=== PATIENT | female | born 1945 | race Caucasian/White ===

== ENCOUNTER → 2016-04-24 | Outpatient (REF) | payer MEDICARE ==
[~2016-04-24] MED LIST: CHLO25TA PO; MOBI7.5T10 PO; OMEP40CA2 PO; POTA10CA32 PO; ROPI2TAB PO; SIMV20TA2 PO; TYLE500T78 PO
== END ==
LOC: M LAB REF 11:40
PROVIDERS: ATTEND Internal Medicine Endocrinology, Diabetes & Metabolism
DX: E04.2 Nontoxic multinodular goiter (principal)

== ENCOUNTER 2018-09-05 11:11 | Day surgery (SDC) | payer MEDICARE ==
[~2018-09-05] VITALS: Ht 157.5 cm; Wt 68.5 kg
[~2018-09-05 11:11] MED LIST changes: +ACET-897 PO; +CELE100C PO; +CHLO125TA PO; +GABA-1171 PO; +MOBI4TAB PO; -MOBI7.5T10 PO; +RANI150T PO
--- NOTE | 2018-09-05 12:21 | ROOR ---
Patient Name: Alison Trujillo Procedure Date: 09/05/2018 11:54 AM Date of : 1945 Age: 72 Room: [facility] Gender: Female Note Status: Finalized Procedure: Colonoscopy Indications: High risk colon cancer surveillance: Personal history of colonic polyps, Family history of colon cancer Providers: Roger RAMSEY MD Referring MD: EBONI CRUZ MD Requesting Provider: Medicines: Monitored Anesthesia Care Complications: No immediate complications. Procedure: Pre-Anesthesia Assessment: - The heart rate, respiratory rate, oxygen saturations, blood pressure, adequacy of pulmonary ventilation, and response to care were monitored throughout the procedure. The Colonoscope was introduced through the anus and advanced to the terminal ileum, with identification of the appendiceal orifice and IC valve. The colonoscopy was performed without difficulty. The patient tolerated the procedure well. The quality of the bowel preparation was fair. Findings: The perianal and digital rectal examinations were normal. Three sessile polyps were found in the ascending colon. The polyps were 4 to 5 mm in size. These polyps were removed with a cold snare. Resection and retrieval were complete. (EXAM: Complete, PREP: Fair/Adequate) Multiple small and large-mouthed diverticula were found in the sigmoid colon and descending colon. Internal hemorrhoids were found during retroflexion. The hemorrhoids were moderate. The exam was otherwise without abnormality on direct and retroflexion views. Impression: - (EXAM: Complete, PREP: Fair/Adequate) - Preparation of the colon was fair. - Three 4 to 5 mm polyps in the ascending colon, removed with a cold snare. Resected and retrieved. - Moderate diverticulosis in the sigmoid colon and in the descending colon. - Internal hemorrhoids. - The examination was otherwise normal on direct and retroflexion views. Recommendation: - Repeat colonoscopy in 3 years for adenoma surveillance. - Repeat colonoscopy in 3 years because the bowel preparation was slightly suboptimal in a few areas. Roger Ramsey MD Roger RAMSEY MD 09/05/2018 12:21:46 PM Electronically signed by Roger RAMSEY MD Number of Addenda: 0 Note Initiated On: 09/05/2018 11:54 AM Estimated Blood Loss: Estimated blood loss: none.
[2018-09-05 12:47] VITALS: BP 146/67
== END 2018-09-05 12:47 | disposition home or self-care (01) ==
LOC: M OPP 11:11
PROVIDERS: ATTEND Internal Medicine Gastroenterology
DX: Z86.010 Personal history of colon polyps (principal); K64.8 Other hemorrhoids; D12.2 Benign neoplasm of ascending colon; K57.30 Diverticulosis of large intestine without perforation or abscess without bleeding; Z80.0 Family history of malignant neoplasm of digestive organs; Z83.79 Family history of other diseases of the digestive system

== ENCOUNTER → 2019-07-02 | Outpatient (REF) | payer MEDICARE ==
[~2019-07-02] MED LIST changes: -OMEP40CA2 PO; +OMEP40CA97 PO; -ROPI2TAB PO; +ROPI2TAB3 PO; -SIMV20TA2 PO; +SIMV20TA22 PO
== END ==
LOC: M LAB REF 17:28
PROVIDERS: ATTEND Dermatology
DX: L57.0 Actinic keratosis (principal); L57.8 Other skin changes due to chronic exposure to nonionizing radiation

== ENCOUNTER → 2021-09-18 | Outpatient (CLI) | payer MEDICARE ==
[~2021-09-18] MED LIST changes: +ECOT81TA5 PO; +IRON65TA2 PO; +LISI10TA24 PO; +OMEP-173 PO; +OMEP40CA4 PO; -OMEP40CA97 PO; +PRES1CHW PO; +ROSU20TA5 PO; +VITA500C24 PO; +VITMTA PO
== END ==
LOC: M LABSMTC 10:38
PROVIDERS: ATTEND Anesthesiology
DX: Z01.818 Encounter for other preprocedural examination (principal); Z11.52 Encounter for screening for COVID-19

== ENCOUNTER 2021-09-22 11:18 | Day surgery (SDC) | payer MEDICARE ==
[~2021-09-22] VITALS: Ht 157.5 cm; Wt 76.7 kg
[~2021-09-22 11:18] MED LIST changes: +NS 1,000 ML IV ONE
[2021-09-22] MEDS ORDERED: propofoL 200 MG/20 ML VIAL As Ordered ONE (12:46)
[2021-09-22 15:10] VITALS: BP 151/75
== END 2021-09-22 15:20 | disposition home or self-care (01) ==
LOC: M OPP 11:18
PROVIDERS: ATTEND Internal Medicine Gastroenterology
DX: Z12.11 Encounter for screening for malignant neoplasm of colon (principal); Z86.010 Personal history of colon polyps; Z80.0 Family history of malignant neoplasm of digestive organs; K63.5 Polyp of colon; K57.30 Diverticulosis of large intestine without perforation or abscess without bleeding; K64.8 Other hemorrhoids; Z79.02 Long term (current) use of antithrombotics/antiplatelets; Z79.1 Long term (current) use of non-steroidal anti-inflammatories (NSAID); Z79.82 Long term (current) use of aspirin; Z79.891 Long term (current) use of opiate analgesic; Z79.899 Other long term (current) drug therapy; Z88.5 Allergy status to narcotic agent; Z87.891 Personal history of nicotine dependence; Z80.51 Family history of malignant neoplasm of kidney; Z80.1 Family history of malignant neoplasm of trachea, bronchus and lung; Z83.79 Family history of other diseases of the digestive system

== ENCOUNTER → 2022-09-27 | Outpatient (CLI) | payer OTHER ==
[~2022-09-27] MED LIST changes: +E-Z-GAS II EFFERVESCENT PACKET (SODIUM BICARB./CITRIC ACID/SIMETHICONE) As Ordered ONE; +E-Z-HD 98% w/w 340GM SUSP BTL As Ordered ONE; +E-Z-PAQUE 96% w/w SUSP 176GM BTL As Ordered ONE; -NS 1,000 ML IV ONE; -POTA10CA32 PO; +POTA10CA60 PO; -ROSU20TA5 PO; +ROSU20TA61 PO
== END ==
LOC: M RAD 10:05
PROVIDERS: ATTEND Physician Assistant Medical
DX: K44.9 Diaphragmatic hernia without obstruction or gangrene (principal); K22.2 Esophageal obstruction; K21.9 Gastro-esophageal reflux disease without esophagitis; T17.320A Food in larynx causing asphyxiation, initial encounter; Y92.9 Unspecified place or not applicable

== ENCOUNTER 2022-11-12 13:13 | Day surgery (SDC) | payer MEDICARE, OTHER ==
[~2022-11-12] VITALS: Ht 160 cm; Wt 75.3 kg
[~2022-11-12 13:13] MED LIST changes: -E-Z-GAS II EFFERVESCENT PACKET (SODIUM BICARB./CITRIC ACID/SIMETHICONE) As Ordered ONE; -E-Z-HD 98% w/w 340GM SUSP BTL As Ordered ONE; -E-Z-PAQUE 96% w/w SUSP 176GM BTL As Ordered ONE; +NS 1,000 ML IV ONE; -ROPI2TAB3 PO; +ROPI2TAB46 PO
[2022-11-12] MEDS ORDERED: fentaNYL 100 MCG/2 ML INJECTION As Ordered ONE (14:02)
[2022-11-12] MEDS ORDERED: propofoL 200 MG/20 ML VIAL As Ordered ONE (14:04)
[2022-11-12] MEDS ORDERED: LIDOCAINE 2% 100MG/5ML SDV (FOR ANES.) As Ordered ONE (14:04)
[2022-11-12] MEDS ORDERED: ONDANSETRON 4MG 2ML VIAL As Ordered ONE (15:04)
[2022-11-12 15:51] VITALS: BP 128/64; TEMP 97; O2SAT 97
== END 2022-11-12 15:54 | disposition home or self-care (01) ==
LOC: M OPP 13:13
PROVIDERS: ATTEND Internal Medicine Gastroenterology
DX: K44.9 Diaphragmatic hernia without obstruction or gangrene (principal); K22.2 Esophageal obstruction; R93.3 Abnormal findings on diagnostic imaging of other parts of digestive tract; R13.12 Dysphagia, oropharyngeal phase; Z79.1 Long term (current) use of non-steroidal anti-inflammatories (NSAID); Z79.82 Long term (current) use of aspirin; Z79.891 Long term (current) use of opiate analgesic; Z79.899 Other long term (current) drug therapy; Z88.5 Allergy status to narcotic agent
CPT/HCPCS: 43239; 43249; 88305; J2405; J3010